=== PATIENT | female | born 1950 | race Caucasian/White ===

== ENCOUNTER → 2024-01-24 08:58 | Outpatient (REF) | payer MEDICARE, SELFPAY | LOC: RCS 08:58 | PROVIDERS: ATTENDING PHYSICIAN Internal Medicine | DX: R07.89 Other chest pain (principal) | CPT/HCPCS: 93017 ==

== ENCOUNTER → 2024-01-31 09:06 | Outpatient (REF) | payer MEDICARE, SELFPAY | LOC: HWRAD 09:06 | PROVIDERS: ATTENDING PHYSICIAN Internal Medicine | DX: Z12.31 Encounter for screening mammogram for malignant neoplasm of breast (principal); M81.0 Age-related osteoporosis without current pathological fracture | CPT/HCPCS: 77063; 77067; 77080 ==

== ENCOUNTER 2024-06-23 12:14 | Emergency (ER) | payer MEDICARE, SELFPAY ==
[2024-06-23 12:23] VITALS: BP 128/64
[2024-06-23 12:41] LABS: % Basophils 0.5 % (0-2); % Eosinophils 1.4 % (0-6); % Immature Granulocytes 0.2 % (0-0.5); % Lymphocytes 34.9 % (20.5-51.1); % Monocytes 6.7 % (1.7-9.3); % Neutrophils 56.3 % (42.2-75.2); Absolute Eosinophils 0.1 10^3/uL (0-0.7); Absolute Lymphocytes 2.2 10^3/uL (1.2-3.4); Absolute Monocytes 0.4 10^3/uL (0.1-0.6); Absolute Neutrophils 3.6 10^3/uL (1.4-6.5); Hematocrit 35.7 % (37.0-47.0); Hemoglobin 12.2 g/dL (12.0-16.0); Mean Corp Hgb Conc. 34.2 g/dL (33.0-37.0); Mean Corpuscular Hgb 29.9 pg (27.0-31.0); Mean Corpuscular Volume 87.5 fL (81.0-99.0); Mean Platelet Volume 9.8 fL (7.4-10.4); Nucleated Red Blood Cells % 0 %; Platelet Count 269 10^3/uL (130-400); Red Blood Cell Count 4.08 10^6/uL (4.20-5.40); Red Cell Dist. Width 11.8 % (11.5-14.5); White Blood Cell Count 6.4 10^3/uL (4.8-10.8)
[2024-06-23 12:52] VITALS: BMI 32.1
[2024-06-23 13:04] LABS: Troponin I < 0.012 ng/ml
[2024-06-23 13:08] LABS: ALT (SGPT) 16 U/L (0-35); AST (SGOT) 24 U/L (14-36); Albumin 4.3 g/dl (3.5-5.0); Alkaline Phosphatase 71 U/L (38-126); Blood Urea Nitrogen 17 mg/dl (7-17); Calcium 9.7 mg/dl (8.4-10.2); Carbon Dioxide 21 mmol/L (22-30); Chloride 106 mmol/L (98-107); Estimated Creatinine Clearance 46 ml/min; Glucose 133 mg/dl (70-99); Potassium 3.9 mmol/L (3.5-5.1); Sodium 141 mmol/L (135-145); Total Bilirubin 0.3 mg/dl (0.2-1.3); Total Protein 6.8 g/dl (6.3-8.2); eGFR 58.75
--- NOTE | 2024-06-23 13:25 | ED.GENMED ---
History of Present Illness
General
Chief Complaint: Chest Pain
Time Seen by Provider: 06/23/24 12:43
History of Present Illness
History of Present Illness:
74-year-old female with history of hyperlipidemia presenting to the emergency department with concern of chest pain. Patient reports 2 days ago she was at the gym on the stationary bike and had chest discomfort with diaphoresis, felt very hot.
Symptoms improved, however did have a little bit of chest pain yesterday. Today she woke up at 6 AM, had a discomfort in the left side of her chest which lasted several hours, has since resolved. Notes that she has had a stressful few days, has
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 Denies any known cardiac issues. Does report stress test a few months ago that was normal. Denies any difficulty breathing. Denies abdominal pain or GI
symptoms. Denies additional acute medical complaints
Past History
Past History
ED Past Medical History: GERD, Hypercholesterolemia, Valvular disease (Mitral valve prolapse) and Other (History of skin cancer, Vertigo)
ED Past Surgical History: , Orthopedic (Bilateral knee arthroscopies) and Other (Bladder lift surgery, surgery for deviated septum)
Social History
Tobacco: Non-smoker
Alcohol: Occasional
Personal:
Living: with family
Employment: Retired
Phy Exam
Physical Exam
Physical Exam:
General: Well-appearing, no clinical signs of dehydration, nontoxic and in no acute distress
HEENT: protecting airway
Neck: appears supple
CV: Normal heart rate, regular rhythm, no evidence of cyanosis
Resp: No accessory muscle use, no increased work of breathing, lungs clear to auscultation bilaterally
Abd: Soft and non-distended, no tenderness to palpation
Extremities: No deformities, no swelling, no erythema
Neuro: alert, no focal neurologic deficit
: deferred
Rectal: deferred
Psych: Normal affect
Skin: Intact
Scores
Heart Score for Chest Pain Patients
STEMI patient?: No
History: Slightly or Non-Suspicious
ECG: Normal
Age: >/= 65 years
Risk Factors: 1 or 2 Risk Factors
Troponin: </= Normal Limit
Heart Score for Chest Pain Patients: 3
Heart Score Risk: 2.5% MACE over next 6 weeks
Course
Orders/Labs/Results
Orders:
Orders
06/23/24 12:15
ECG [Electrocardiogram (*1)] Urgent
Reason for Study: Chest Pain
EKG- Treatment ONCE
06/23/24 12:35
Complete Blood Count/With Diff Urgent
Comprehensive Metabolic Panel Urgent
Troponin I Urgent
Abnormal Lab Results
06/23/24
12:35
RBC 4.08 L 10^6/uL
(4.20-5.40)
Hct 35.7 L %
(37.0-47.0)
Carbon Dioxide 21 L mmol/L
(22-30)
Glucose 133 H mg/dl
(70-99)
06/23/24 12:35
06/23/24 12:35
Vital Signs
Initial and Last Documented VS:
Initial Vital Signs
Temp Pulse Resp BP Pulse Ox
98.4 F 85 18 128/64 96
06/23/24 12:23 06/23/24 12:23 06/23/24 12:23 06/23/24 12:23 06/23/24 12:23
Last Documented Vital Signs
Temp Pulse Resp BP Pulse Ox
98.4 F 82 17 128/64 97
06/23/24 12:23 06/23/24 12:53 06/23/24 12:53 06/23/24 12:23 06/23/24 12:56
MDM/Problems Addressed
MDM/Problems Addressed:
74-year-old female presenting to the emergency department for chest pain for the past few days, started today at 6 AM and has since resolved. Vital signs are normal.
On exam patient is well-appearing, resting comfortably, no acute distress or discomfort. Unremarkable cardiac and pulmonary exam. Mild tenderness to the left chest wall, possible musculoskeletal quality to symptoms. EKG obtained, no acute
ischemic abnormality. On review of EMR, patient had a exercise stress test on 01/24/2024, low risk stress test. In the setting of normal EKG and recently performed lower stress test, lower suspicion for ACS. Plan for laboratory analysis including
troponin.
13:45 - Labs are unremarkable, undetectable troponin. On reassessment, patient remains hemodynamically stable. At this time feel that she is stable for discharge, however with interval follow-up with her electrician supervisor airplane. Patient has an upcoming
appointment. Strict return precautions communicated and patient verbalized understanding
*EKG
Interpreted by ED Provider?: Yes
EKG Intrepretation Date: 06/23/24
EKG Intrepretation Time: 13:30
Interpretation: normal
Comparison EKG: no changes
Heart Rate: 88
Rate: normal
Rhythm: sinus
Broadway: normal axis
Interval: normal interval
QRS Pattern: normal QRS
Ischemia: no ischemia
*Critical Care Note
Total Time (30-74mins, 75-104mins- exclusive of procedures): Not Applicable
ED Attending Note
-
Portions of this chart may have been created with voice recognition software.� Occasional wrong word or��sound alike� substitutions may have occurred due to the inherent limitations of voice recognition software.
Discharge Plan
Departure
Prescriptions:
No Action
estradiol [Estring] 1 VAG.RING ring
1 vag.ring VAG [id number]
aspirin 81 MG tablet,delayed release (DR/EC)
81 mg PO DAILY
calcium carbonate-vitamin D3 [Oyster Shell Calcium-Vit D3] 500 MG tablet
500 mg PO BID
cholecalciferol (vitamin D3) 1,000 UNITS tablet
1,000 units PO DAILY
zoledronic [id number]-krqdgmaj-hftkz 5 MG/100 ML piggyback
5 mg IV .YEARLY
Referrals:
James Lynn MD [Family Provider] -
Interventions
Interventions:
*Risk Screen - Suicide Last Done: 06/23/24 12:54
*General Assessment Last Done: 06/23/24 12:52
*Neglect/Abuse Screening Last Done: 06/23/24 12:54
ED- Fall Risk Assessment Last Done: 06/23/24 12:54
*ED COVID-19 Vaccine History Last Done: 06/23/24 12:52
ED- Cardiac Assessment Last Done: 06/23/24 12:54
Discharge Date and Time
Print Language: MALTESE
[2024-06-23 14:36] VITALS: BP 133/70
== END 2024-06-23 14:37 | disposition home or self-care (01) ==
LOC: EMR 12:14
PROVIDERS: Emergency Medicine; EMERGENCY PHYSICIAN Student in an Organized Health Care Education/Training Program; FAMILY PHYSICIAN Internal Medicine
DX: R07.89 Other chest pain (principal); E78.00 Pure hypercholesterolemia, unspecified; K21.9 Gastro-esophageal reflux disease without esophagitis; I34.1 Nonrheumatic mitral (valve) prolapse; Z85.828 Personal history of other malignant neoplasm of skin; Z79.82 Long term (current) use of aspirin
CPT/HCPCS: 99283; 80053; 84484; 85025; 93005

== ENCOUNTER → 2024-07-16 07:38 | Outpatient (REF) | payer MEDICARE, SELFPAY | LOC: DHCBC/DCA 07:38 | PROVIDERS: ATTENDING PHYSICIAN Internal Medicine Cardiovascular Disease; FAMILY PHYSICIAN Internal Medicine | DX: R07.2 Precordial pain (principal); I25.10 Atherosclerotic heart disease of native coronary artery without angina pectoris | CPT/HCPCS: 78452; 93017; A9500 ==

== ENCOUNTER → 2024-07-17 16:00 | Outpatient (REF) | payer MEDICARE, SELFPAY | LOC: RCS 16:00 | PROVIDERS: ATTENDING PHYSICIAN Internal Medicine Cardiovascular Disease; FAMILY PHYSICIAN Internal Medicine | DX: R07.2 Precordial pain (principal); I25.10 Atherosclerotic heart disease of native coronary artery without angina pectoris | CPT/HCPCS: 93306 ==

== ENCOUNTER 2024-07-27 14:04 | Emergency (ER) | payer MEDICARE, SELFPAY ==
[2024-07-27 14:09] VITALS: BP 115/73
--- NOTE | 2024-07-27 15:57 | ED.MUSCINJ ---
HPI-Injury
General
Chief Complaint: Fall
Source: patient
Exam Limitations: none
Time Seen by Provider: 07/27/24 15:47
History of Present Illness-Injury
Initial Injury comments:
74-year-old [id number] female presents after a fall she sustained yesterday [facility]. She landed on her right arm and hit her head. She is not anticoagulated. She was dizzy this morning and notes persistent pain to the right wrist
and shoulder. She has an history of reverse total shoulder arthroplasty performed at [facility]. No neck pain or back pain. No other complaints at this time
Past History
Past History
ED Past Medical History: GERD, Hypercholesterolemia, Valvular disease (Mitral valve prolapse) and Other (History of skin cancer, Vertigo)
ED Past Surgical History: , Orthopedic (Bilateral knee arthroscopies) and Other (Bladder lift surgery, surgery for deviated septum)
Social History
Tobacco: Non-smoker
Alcohol: Occasional
Personal:
Living: with family
Employment: Retired
Phy Exam
Physical Exam
Physical Exam:
General: Well-appearing female no acute respiratory distress
HEENT: Normocephalic hematoma noted to the right forehead spreading around the right eye. Pupils equal round reactive to light
Heart: Regular rate and rhythm no murmurs
Lungs: Clear no wheeze
Musculoskeletal exam: Right shoulder without deformity and good active and passive range of motion. Mildly diffusely tender about the proximal humeral area the right wrist tender over the radial aspect of the wrist at the area of the base of the
right thumb the distal radius is nontender. The elbow is nontender. The spine is nontender
Skin is intact without laceration
Neurologic exam: Alert and oriented
Injury Course
Orders/Labs/Results
Orders:
Orders
07/27/24 14:13
CR Wrist - Right Min 3 Views Urgent
Comment:
Reason For Exam: fall with pain
Shoulder, Right, Trauma [CR Shoulder, Trauma - Right] Urgent
Comment:
Reason For Exam: fall with pain
07/27/24 14:[address] [CT Head W/o Iv Contrast] Urgent
Comment:
Reason For Exam: fall
07/27/24 15:57
Thumb Spica Right-Treatment ONCE
07/27/24 16:18
Acetaminophen [Tylenol] 650 mg PO NOW STA
MDM/Problems Addressed
Differential Diagnosis Includes:
Mechanical fall with right wrist and upper arm pain. Question fracture versus sprain versus dislocations. I reviewed x-rays of both the shoulder and the right wrist. These show no obvious acute finding. There is questionable lucency over the
medial aspect of the proximal humerus adjacent to the existing implant however patient is not significantly tender and she has good motion. Do not think this is an acute injury. She is tender over the scaphoid on exam on the right side but no
fractures were noted. Patient placed in a Velcro splint for the right wrist including her thumb. CT of the head is pending
*Critical Care Note
Total Time (30-74mins, 75-104mins- exclusive of procedures): Not Applicable
Update Note
Update Note:
CT of the head is negative. Patient placed in a thumb spica splint for the right wrist given the potential for sprain versus occult scaphoid fracture. Patient is moving her right shoulder quite well without any pain. Considered sling but will
hold off on immobilizing the shoulder for now. Advise she follow-up with orthopedic doctor. Recommended Tylenol or ibuprofen if needed. Stable for discharge
ED Attending Note
-
Portions of this chart may have been created with voice recognition software.� Occasional wrong word or��sound alike� substitutions may have occurred due to the inherent limitations of voice recognition software.
Discharge Plan
Departure
Patient Disposition: Home (Routine Discharge)
Date of Disposition: 07/27/24
Time of Disposition: 17:50
Patient with high blood pressure during this ER visit?: No
Discharge Problem:
Right wrist sprain
Prescriptions:
No Action
estradiol [Estring] 1 VAG.RING ring
1 vag.ring VAG [id number]
aspirin 81 MG tablet,delayed release (DR/EC)
81 mg PO DAILY
calcium carbonate-vitamin D3 [Oyster Shell Calcium-Vit D3] 500 MG tablet
500 mg PO BID
cholecalciferol (vitamin D3) 1,000 UNITS tablet
1,000 units PO DAILY
zoledronic jnes-zwivommw-kwiqj 5 MG/100 ML piggyback
5 mg IV .YEARLY
Referrals:
James Lynn MD [Family Provider] -
Activity Restrictions/Additional Instructions:
You may use Tylenol or ibuprofen for pain. Use the splint for support on your right wrist. If pain persists in the right wrist consider following up with orthopedics for recheck supple occult fracture that is not showing up on today's x-rays.
Interventions
Interventions:
*Risk Screen - Suicide Last Done: 07/27/24 14:09
*General Assessment Last Done: 07/27/24 14:09
*Neglect/Abuse Screening Last Done: 07/27/24 14:09
*Nursing Disposition Last Done: 07/27/24 18:08
ED-Musculoskeletal Assessment Last Done: 07/27/24 16:01
ED- Neurological Assessment Last Done: 07/27/24 15:28
ED-Skin Assessment Last Done: 07/27/24 15:28
Discharge Date and Time
Discharge Date/Time: 07/27/24 18:09
Print Language: MACEDONIAN
[2024-07-27] MEDS: TYLENOL 650 MG PO (16:24)
== END 2024-07-27 18:09 | disposition home or self-care (01) ==
LOC: EMR 14:04
PROVIDERS: EMERGENCY PHYSICIAN Emergency Medicine; FAMILY PHYSICIAN Internal Medicine
DX: S63.501A Unspecified sprain of right wrist, initial encounter (principal); S00.83XA Contusion of other part of head, initial encounter; S00.11XA Contusion of right eyelid and periocular area, initial encounter; R42 Dizziness and giddiness; M25.511 Pain in right shoulder; W19.XXXA Unspecified fall, initial encounter; Y92.89 Other specified places as the place of occurrence of the external cause; K21.9 Gastro-esophageal reflux disease without esophagitis; E78.00 Pure hypercholesterolemia, unspecified; I34.1 Nonrheumatic mitral (valve) prolapse; Z79.82 Long term (current) use of aspirin; Z85.828 Personal history of other malignant neoplasm of skin; Z96.611 Presence of right artificial shoulder joint
CPT/HCPCS: 99284; 29125; 70450; 73030; 73110

== ENCOUNTER → 2024-11-27 07:18 | Outpatient (REF) | payer MEDICARE, SELFPAY | LOC: HWRAD 07:18 | PROVIDERS: ATTENDING PHYSICIAN Internal Medicine | DX: R10.11 Right upper quadrant pain (principal) | CPT/HCPCS: 76700 ==

== ENCOUNTER → 2025-03-06 08:12 | Outpatient (REF) | payer MEDICARE, SELFPAY ==
[2025-03-06 08:52] LABS: % Basophils 0.6 % (0-2); % Eosinophils 1.7 % (0-6); % Immature Granulocytes 0.3 % (0-0.5); % Lymphocytes 31.5 % (20.5-51.1); % Neutrophils 57.9 % (42.2-75.2); Absolute Eosinophils 0.1 10^3/uL (0-0.7); Absolute Lymphocytes 2.2 10^3/uL (1.2-3.4); Absolute Monocytes 0.6 10^3/uL (0.1-0.6); Absolute Neutrophils 4.1 10^3/uL (1.4-6.5); Hematocrit 42.3 % (37.0-47.0); Mean Corp Hgb Conc. 33.1 g/dL (33.0-37.0); Mean Corpuscular Hgb 30.4 pg (27.0-31.0); Mean Corpuscular Volume 91.8 fL (81.0-99.0); Mean Platelet Volume 10.5 fL (7.4-10.4); Nucleated Red Blood Cells % 0 %; Platelet Count 279 10^3/uL (130-400); Red Blood Cell Count 4.61 10^6/uL (4.20-5.40)
[2025-03-06 09:40] LABS: ALT (SGPT) 18 U/L (0-35); AST (SGOT) 22 U/L (14-36); Albumin 4.8 g/dl (3.5-5.0); Alkaline Phosphatase 83 U/L (38-126); Blood Urea Nitrogen 18 mg/dl (7-17); Calcium 9.8 mg/dl (8.4-10.2); Carbon Dioxide 28 mmol/L (22-30); Chloride 110 mmol/L (98-107); Glucose 97 mg/dl (70-99); HDL Cholesterol 63 mg/dl; LDL Cholesterol, Calculated 124 mg/dl; Sodium 144 mmol/L (135-145); Total Bilirubin 0.6 mg/dl (0.2-1.3); Total Cholesterol 203 mg/dl (50-199); Total Protein 7.7 g/dl (6.3-8.2); Triglyceride 84 mg/dl (10-149); Very Low Density Lipoprotein 16 mg/dl (0-30); eGFR 58.39
[2025-03-06 10:15] LABS: TSH 1.27 uIU/ml (0.47-4.68)
== END ==
LOC: WDC 08:12
PROVIDERS: ATTENDING PHYSICIAN Internal Medicine
DX: Z00.00 Encounter for general adult medical examination without abnormal findings (principal); E78.2 Mixed hyperlipidemia; M81.0 Age-related osteoporosis without current pathological fracture; I25.10 Atherosclerotic heart disease of native coronary artery without angina pectoris; Z12.31 Encounter for screening mammogram for malignant neoplasm of breast
CPT/HCPCS: 36415; 80053; 80061; 84443; 85025

== ENCOUNTER 2025-06-29 10:27 | Emergency (ER) | payer MEDICARE, SELFPAY ==
[2025-06-29] VITALS (8 sets, daily range): BP systolic 116–157; BP diastolic 68–108; BMI 31.5
--- NOTE | 2025-06-29 10:55 | ED.GENMED ---
History of Present Illness
General
Chief Complaint: Heart Rate Problem
Time Seen by Provider: 06/29/25 10:43
Nursing documentation reviewed up to this point in time: agreed with
History of Present Illness
History of Present Illness:
75-year-old female presents to the ER for evaluation of elevated heart rate and report from her [employer] Watch that she has been in and out of A-fib since this past weekend. Patient states that she has been still physically active but reports that she
feels winded after walking approximately 2 miles-up until a few months ago she had been walking 3 miles daily. She reports some mild discomfort in her chest earlier today which has resolved. She denies any peripheral edema. She denies any recent
change in p.o. intake. She states that she has been having looser stools since she had a gastrointestinal infection last September, she denies any blood in her stool. No recent syncope or trauma-her last fall with an associated head strike was last
July. She admits that she does not take her prescribed medications routinely-she is supposed to be on cholesterol medication and a baby aspirin.
She has prior history of joint replacements, GERD, mitral valve prolapse and hyperlipidemia. She does see Dr. Valentin from cardiology routinly, no prior h/o ACS
Past History
Past History
ED Past Medical History: GERD, Hypercholesterolemia, Valvular disease (Mitral valve prolapse) and Other (History of skin cancer, Vertigo)
ED Past Surgical History: , Orthopedic (Bilateral knee arthroscopies) and Other (Bladder lift surgery, surgery for deviated septum)
Social History
Tobacco: Non-smoker
Alcohol: Occasional
Personal:
Living: with family
Employment: Retired
Review of Systems
Review of Systems
Allergies reviewed?: Yes
Phy Exam
Physical Exam
Physical Exam:
Patient is awake, alert, appears in no acute distress, head is NCAT, PERRL, EOMI mucous membranes moist, conjunctiva pink, heart irregular rate and rhythm without murmurs or ectopy, lungs are clear to auscultation without wheezes rales or rhonchi,
no JVD, abdomen is soft and nontender on palpation, extremities without edema, GCS is 15
Scores
[id number] Score for Afib Stroke Risk
Age in Years (65=0, 65-74=1, >/=75=2): > or = 75
Sex (Female=+1): Female
Congestive Heart Failure History (Yes=+1): No
Hypertension History (Yes=+1): No
Stroke/TIA/Thromboembolism History (Yes=+2): No
Vascular Disease History (Yes=+1): No
Diabetes Mellitus (Yes=+1): No
Score: 3
Anticoagulation Recommendations: Recommend anticoagulation (as validated in nonvalvular fib)
Course
Orders/Labs/Results
Orders:
Orders
06/29/25 10:28
EKG [Electrocardiogram (*1)] Urgent
Reason for Study: Palpitations
EKG- Treatment ONCE
06/29/25 10:55
Metoprolol [Lopressor] 5 mg IV NOW STA
Pulse Ox/cont/shift [RESP] Stat
Quantity: 1
06/29/25 10:56
Cardiac Monitoring- Treatment ONCE
CR Chest - 2 Views Urgent
Comment:
Reason For Exam: dyspnea
06/29/25 11:12
Complete Blood Count/With Diff Urgent
Comprehensive Metabolic Panel Urgent
Magnesium Urgent
TSH Reflex To Free T4 Urgent
Troponin I Q3H
06/29/25 13:12
Electrocardiogram (*1) Urgent
Reason for Study: Palpitations
EKG- Treatment ONCE
06/29/25 13:50
Apixaban [Eliquis] 5 mg PO ONCE ONE
06/29/25 13:56
Troponin I Q3H
Abnormal Lab Results
06/29/25
11:12
RBC 4.19 L 10^6/uL
(4.20-5.40)
BUN 20 H mg/dl
(7-17)
06/29/25 11:12
06/29/25 11:12
CBC without significant abnormality. Electrolytes within normal limits with preserved kidney function
Vital Signs
Initial and Last Documented VS:
Initial Vital Signs
Temp Pulse Resp BP Pulse Ox
98.5 F 89 16 157/88 96
06/29/25 10:30 06/29/25 10:30 06/29/25 10:30 06/29/25 10:30 06/29/25 10:30
Last Documented Vital Signs
Temp Pulse Resp BP Pulse Ox
98.5 F 85 20 132/78 98
06/29/25 15:16 06/29/25 15:16 06/29/25 15:16 06/29/25 15:16 06/29/25 15:16
MDM/Problems Addressed
Differential Diagnosis Includes:
Differential diagnosis to consider but not limited to arrhythmia, electrolyte dyscrasia, thyroid dysfunction, idiopathic A-flutter along with other etiologies considered
Chronic conditions affecting care:
Advanced age
*Pulse Oximetry
SaO2: 96
Oxygen Mode of Delivery: Room air
Patient hypoxic: no
*EKG
Interpreted by ED Provider?: Yes (I independently viewed and interpreted twelve-lead EKG showing atrial flutter with a rate of 103 and PVCs, no ST elevation, there is some moderate baseline artifact but no overt evidence for acute ST elevation DE,
this is an abnormal tracing, new arrhythmia compared to prior from 06/23/2024)
*Pipeline Engineer Interpretation
Rate: tachycardiac (I independently viewed and interpreted rhythm strip showing atrial fibrillation with rate vacillating from 83-110, occasional PVCs)
*Critical Care Note
Total Time (30-74mins, 75-104mins- exclusive of procedures): Not Applicable
Update Note
Update Note:
I will give dose of IV Lopressor to help with rate while awaiting remaining workup. Patient expressed understanding of likely need for anticoagulation. She has no questions at the current time
1350: Patient resting comfortably. Heart rate controlled with IV Lopressor administered. Repeat EKG shows A-fib with competing junctional pacemaker, rate 87, no ST elevation. I reviewed full patient presentation with on-call lacquer coater,
Linda. I discussed with her evaluation in the emergency department. She would recommend initiation of 25 mg Toprol-XL daily along with 5 mg Eliquis twice daily. She agrees with plan for patient follow-up in the office with Dr. Valentin, her
routine lacquer coater. Would await second troponin for discharge.
I reviewed with patient full discharge instructions including medication usage and need for follow-up. Patient felt comfortable with plan and had no questions prior to leaving the department.
ED Attending Note
-
Portions of this chart may have been created with voice recognition software.� Occasional wrong word or��sound alike� substitutions may have occurred due to the inherent limitations of voice recognition software.
Discharge Plan
Departure
Patient Disposition: Home (Routine Discharge)
Date of Disposition: 06/29/25
Time of Disposition: 15:05
Patient with high blood pressure during this ER visit?: No
Discharge Problem:
Atrial fibrillation and flutter
Instructions: Atrial Fibrillation (DC)
Prescriptions:
New
Eliquis 5 mg tablet
5 mg PO BID Qty: 60 0RF
metoprolol succinate [Toprol XL] 25 mg tablet extended release 24 hr
25 mg PO DAILY Qty: 30 0RF
No Action
estradiol [Estring] 1 VAG.RING ring
1 vag.ring VAG [id number]
aspirin 81 MG tablet,delayed release (/EC)
81 mg PO DAILY
calcium carbonate-vitamin D3 [Oyster Shell Calcium-Vit D3] 500 MG tablet
500 mg PO BID
cholecalciferol (vitamin D3) 1,000 UNITS tablet
1,000 units PO DAILY
zoledronic [id number]-mdrbtwxf-[id number] 5 MG/100 ML piggyback
5 mg IV .YEARLY
Referrals:
James Lynn MD [Family Provider, Internal Medicine]
Geovany Brar MD [Active, Cardiology] - Next open appointment
Activity Restrictions/Additional Instructions:
Please take Eliquis and metoprolol as prescribed here in the emergency department. Please contact Dr. Valentin's office in order to schedule appointment for close outpatient reevaluation for your new diagnosis of atrial fibrillation. Please return
to the ER for any concerns
Interventions
Interventions:
*Risk Screen - Suicide Last Done: 06/29/25 10:34
*Nursing Disposition Last Done: 06/29/25 15:16
ED- Cardiac Assessment Last Done: 06/29/25 11:17
ED- Pulmonary Assessment Last Done: 06/29/25 11:19
Discharge Date and Time
Discharge Date/Time: 06/29/25 15:18
Print Language: KAZAKH
[2025-06-29 11:28] LABS: Hematocrit 38.1 % (37.0-47.0); Hemoglobin 12.7 g/dL (12.0-16.0); Mean Corp Hgb Conc. 33.3 g/dL (33.0-37.0); Mean Corpuscular Volume 90.9 fL (81.0-99.0); Nucleated Red Blood Cells % 0 %; Platelet Count 262 10^3/uL (130-400); Red Cell Dist. Width 11.9 % (11.5-14.5)
[2025-06-29 11:40] LABS: ALT (SGPT) 19 U/L (0-35); AST (SGOT) 18 U/L (14-36); Albumin 4.4 g/dl (3.5-5.0); Alkaline Phosphatase 73 U/L (38-126); Blood Urea Nitrogen 20 mg/dl (7-17); Calcium 9.7 mg/dl (8.4-10.2); Carbon Dioxide 26 mmol/L (22-30); Chloride 107 mmol/L (98-107); Estimated Creatinine Clearance 49 ml/min; Glucose 90 mg/dl (70-99); Magnesium 2.2 mg/dl (1.6-2.3); Potassium 4.4 mmol/L (3.5-5.1); Sodium 139 mmol/L (135-145); Total Protein 7.0 g/dl (6.3-8.2); eGFR > 60.00
[2025-06-29 11:48] LABS: Troponin I < 0.012 ng/ml
[2025-06-29] MEDS: LOPRESSOR 5 MG IV (12:01)
[2025-06-29 14:33] LABS: Troponin I < 0.012 ng/ml
[2025-06-29] MEDS: ELIQUIS 5 MG PO (14:42)
== END 2025-06-29 15:18 | disposition home or self-care (01) ==
LOC: EMR 10:27
PROVIDERS: EMERGENCY PHYSICIAN Emergency Medicine; FAMILY PHYSICIAN Internal Medicine
DX: I48.91 Unspecified atrial fibrillation (principal); I48.92 Unspecified atrial flutter; K21.9 Gastro-esophageal reflux disease without esophagitis; I34.1 Nonrheumatic mitral (valve) prolapse; E78.00 Pure hypercholesterolemia, unspecified; Z79.01 Long term (current) use of anticoagulants; Z85.828 Personal history of other malignant neoplasm of skin; Z95.0 Presence of cardiac pacemaker; Z96.60 Presence of unspecified orthopedic joint implant
CPT/HCPCS: 99283; 96374; 71046; 80053; 83735; 84443; 84484; 85025; 93005

== ENCOUNTER → 2025-08-19 11:19 | Outpatient (REF) | payer MEDICARE, SELFPAY | LOC: RCS 11:19 | PROVIDERS: ATTENDING PHYSICIAN Internal Medicine Cardiovascular Disease; FAMILY PHYSICIAN Internal Medicine | DX: I48.19 Other persistent atrial fibrillation (principal) | CPT/HCPCS: 93306 ==

== ENCOUNTER 2025-09-03 09:57 | Day surgery (SDC) | payer MEDICARE, SELFPAY ==
--- NOTE | 2025-09-03 10:58 | ITS.CL.CARDI ---
Commercial Relationship Manager - Cardioversion
Cardioversion
Procedure Report:
Procedure: ROLAND-guided electrical cardioversion
Pre-operative diagnosis: Persistent atrial fibrillation
Post-operative diagnosis: Persistent atrial fibrillation status post DC cardioversion to sinus rhythm
Anesthesia: MAC
Attending Physician: Geovany Brar MD
Procedure Description: The patient was brought to the electrophysiology laboratory in the fasting state. Informed consent was obtained from the patient prior to the start of the procedure. Adherence to anticoagulation was confirmed. Electrodes were
placed on the patient and connected to an external defibrillator. Monitoring of blood pressure, ECG tracings, and pulse oximetry was initiated. The pads were applied to the patient in the anterior and posterior positions. The patient was sedated by
the anesthesiologist. A ROLAND (reported separately) was performed prior to the cardioversion. No left atrial or left atrial appendage thrombus was seen. After the ROLAND probe was removed, a 200 joule biphasic synchronized shock was delivered to the
patient under MAC anesthesia. Sinus rhythm was successfully restored. The patient recovered uneventfully from MAC anesthesia. There were no immediate post-procedure complications. The patient left the lab in good condition. The attending physician
was present throughout the entire procedure.
Impression: Successful ROLAND-guided direct current cardioversion with confucianism of sinus rhythm after one 200 joule biphasic synchronized shock.
== END 2025-09-03 12:00 | disposition home or self-care (01) ==
LOC: CATH 09:57
PROVIDERS: ATTENDING PHYSICIAN Internal Medicine Cardiovascular Disease; FAMILY PHYSICIAN Internal Medicine
DX: I48.19 Other persistent atrial fibrillation (principal); I25.10 Atherosclerotic heart disease of native coronary artery without angina pectoris; E78.2 Mixed hyperlipidemia; Z79.899 Other long term (current) drug therapy; Z79.01 Long term (current) use of anticoagulants
CPT/HCPCS: 93312; 93320; 93325; 92960; 93005